=== PATIENT | male | born 2000 | race Caucasian/White ===

== ENCOUNTER 2021-06-25 11:33 | Outpatient (CLI) | payer OTHER, SELFPAY | END 2021-06-25 11:34 | disposition home or self-care (01) | LOC: ANHSURGERY 11:38 | PROVIDERS: PCP Family Medicine; Visit Provider Surgery | DX: Z01.818 Encounter for other preprocedural examination (principal); K40.90 Unilateral inguinal hernia, without obstruction or gangrene, not specified as recurrent | CPT/HCPCS: 36415; 86850; 86900; 86901 ==

== ENCOUNTER → 2021-06-28 00:05 | Outpatient (CLI) | payer OTHER, SELFPAY ==
[2021-06-28 19:57] LABS: SARS-CoV-2 RNA PCR Negative
== END ==
PROVIDERS: PCP Family Medicine; Visit Provider Surgery
DX: Z01.812 Encounter for preprocedural laboratory examination (principal); Z20.822 Contact with and (suspected) exposure to COVID-19
CPT/HCPCS: C9803; U0003; U0005

== ENCOUNTER 2021-07-02 00:37 | Day surgery (SDC) | payer OTHER, SELFPAY ==
[2021-06-20 13:47] VITALS: BMI 27.1
--- NOTE | 2021-06-20 14:01 | PC.NURSE ---
Addendum entered by Amara Garcia RN 06/20/21 14:04: PT INSTRUCTED TO SHOWER WITH MACEYNS MORNING OF SURGERY. Original Note: Report to the Outpatient Waiting Room, entrance under the [place] [facility] located off [facility], at time 7:00 on date 07/02/21. OR Time: 9:00. - You and your visitor will be asked a series of questions to screen for COVID 19 for your protection. - A mask is required within the hospital. - Only one visitor is allowed at this time. Patient visitors will be guided where to wait when not with patient. Preoperative COVID Testing Requirements: No COVID Test needed if: (proof is required; if not received patient will have Rapid Test prior to entry) - Patient has received COVID Vaccine at least 14 days prior to procedure date or - Patient has positive COVID test result within last 90 days of surgery date. COVID Test needed if above criteria is not met If not COVID vaccinated a COVID test must be conducted within 72 hours of surgery and patient is asked to isolate self from time of testing until procedure. You will go to the [facility] for your COVID testing. The [facility] site is located at the corner [address] [facility]. COVID TEST 06/28 AT 9:15 You will only be called if COVID results are positive and your surgeon may reschedule your elective surgery date. Patients may have clear liquids (water, carbonated beverages, clear teas, apple juice) until 3 hours prior to surgery with a maximum of 20 ounces. - No food from midnight until time of surgery - Infants may have breast milk until 4 hours before surgery, formula 6 hours prior to surgery. - Children will be allowed to drink immediately following surgery. If applicable, please bring a bottle or sippy cup to assist with drinking. Juice, water, soda, and popsicles are readily available. For infants on formula, please bring formula the day of surgery. Pacifiers are allowed. Take the following medications with a SIP of water the morning of surgery: WELLBUTRIN Medications to discontinue per physician: N/A Date to take last dose: N/A Please no make-up, nail tajik, hairspray, perfume, deodorant, or body powder the day of surgery. No jewelry (including any body piercings) or valuables the day of surgery, leave them at home. Please take a shower or bath the night before, or the morning of, surgery with an antibacterial soap. Wear comfortable, loose fitting clothing. Children are encouraged to wear pajamas. - Jewelry must be removed prior to entering the operating room. Rings and piercings that are not removed may be cut off. - The hospital will not accept responsibility for valuables. - Please leave all valuables, including medications, at home the day of surgery. If you are going home after surgery, a licensed entry level truck driver must drive you home. - NO public transportation without another adult. - We recommend that an adult stay with you for 24 hours following discharge. - We also recommend that you do not drive, make important decision, drink alcoholic beverages, or take any drugs that were not prescribed by your health care provider for at least 24 hours after your discharge time. For Pediatric surgeries, we recommend two adults accompany the child home (only one inside the building at this time). Follow any additional instructions given to you from your surgeon. Telephone instructions given to PING HARO and asked if any additional questions and then verbalized understanding. Patient advised to call surgeon office or pre surgery nurse liaison [phone] if any additional questions.
[2021-07-02] VITALS (10 sets, daily range): BP systolic 107–131; BP diastolic 59–81; PULSE 58–71; RESP 7–20; TEMP 36.5–36.6; O2SAT 98–100; BMI 27.8
[2021-07-02] MEDS: LACTATED RINGERS 1,000 ML 30 ML IV CONT ×2 (07:35→10:59)
[2021-07-02] MEDS: ACETAMINOPHEN 500 MG TABLET 1000 MG PO (07:46)
[2021-07-02] MEDS: KETOROLAC 15 MG/ML VIAL (*BKC) IV PUSH (07:46)
--- NOTE | 2021-07-02 08:27 | P.PNAN_ITS ---
Anes - Initial Pre Proc Eval Procedure: Operation Date: 07/02/21 09:00 Proposed Procedures p Laparoscopic Right Inguinal Hernia Repair With Mesh, DaVinci Assisted - Kenroy Noe DO Date/Time: 07/02/21 08:27 Surgeon: Kenroy Noe DO Pre Op Diagnosis: Rt Ing Hernia Patient Data Age: 21 Gender: M Height: 1.83 m Weight: 93.15 kg Last Vital Signs Temp 36.5 C 07/02/21 07:10 Pulse 70 07/02/21 07:10 Resp 14 07/02/21 07:10 BP 107/74 07/02/21 07:10 Pulse Ox 100 07/02/21 07:10 Allergies Allergy/AdvReac Type Severity Reaction Status Date / Time No Known Allergies Allergy Verified 07/02/21 07:23 Home Medications Medication Instructions Recorded Confirmed Type bupropion HCl [Wellbutrin XL] 150 mg PO DAILY 06/20/21 07/02/21 History Patient hx anesthesia problems: none Family hx anesthesia problems: none Results Review: All pre-operative results and documents have been reviewed as part of the pre-operative evaluation. [facility], [facility] Past Medical History Medical History ADD (attention deficit disorder) Anxiety Bipolar disorder Scoliosis Social History Social History Smoking status: Current every day smoker Tobacco type: e-cigarettes/vaping Alcohol intake: current Drinks per week: 6 Alcohol use details: ON WEEKENDS Substance use: current Substance use type: marijuana Last use: 06/20/21 Living arrangements: with roommate(s) Spiritual care concerns: No Anes - Eval Final PreProcedure Day of Procedure 07/02/21 08:27 Patient weight: overweight Heart: regular rate and rhythm Lungs: clear to auscultation Airway: Mallampati scale class II Neurological: alert and oriented Last oral intake: >/= 8 hours ASA classification: III Emergent: no Anesthetic plan: proceed Anesthesia type and monitoring: general ETT and standard monitoring Results Review: All pre-operative results and documents have been reviewed as part of the pre-operative evaluation. Informed Consent: The patient's anesthetic plan and its attendant risks and benefits were discussed with the patient/family/POA. Questions were solicited and answers provided to the satisfaction of the patient/family/POA.
[2021-07-02] MEDS: SCOPOLAMINE 1.5 MG PATCH TRANSDERM (08:38)
--- NOTE | 2021-07-02 08:50 | PM.IMHP ---
H&P: HPI History of Present Illness Date/Time: 07/02/21 08:50 Chief Complaint: right inguinal hernia Narrative: This is a 21-year-old man who presents for right inguinal hernia repair. He denies any changes since last seen in office. Review of Systems Review of Systems: All systems reviewed & are unremarkable except as noted in HPI and below Constitutional: Constitutional: Denies chills, Denies fever(s), Denies headache(s) and Denies weight loss Eyes: Eyes: Denies change in vision ENT: Denies dizziness, Denies headache(s), Denies neck mass and Denies throat swelling Cardiovascular: Cardiovascular: Denies chest pain, Denies lightheadedness and Denies dyspnea Respiratory: Respiratory: Denies cough, Denies dyspnea and Denies wheezing Gastrointestinal: Gastrointestinal: Denies abdominal pain, Denies change in bowel habits, Denies nausea and Denies vomiting Genitourinary: Genitourinary: Denies hematuria and Denies dysuria Musculoskeletal: Musculoskeletal: Reports as per HPI Integumentary/Breasts: Skin/Breast: Reports as per HPI Neurologic: Denies dizziness and Denies headache(s) Allergic/Immunologic: Allergic/Immunologic: Denies throat swelling and Denies wheezing PMFSH Past Medical History Medical History ADD (attention deficit disorder) Anxiety Bipolar disorder Scoliosis Social History Social History Smoking status: Current every day smoker Tobacco type: e-cigarettes/vaping Alcohol intake: current Drinks per week: 6 Alcohol use details: ON WEEKENDS Substance use: current Substance use type: marijuana Last use: 06/20/21 Living arrangements: with roommate(s) Spiritual care concerns: No Meds Home Medications and Allergies Home Medications Medication Instructions Recorded Confirmed Type bupropion HCl [Wellbutrin XL] 150 mg PO DAILY 06/20/21 07/02/21 History Allergies Allergy/AdvReac Type Severity Reaction Status Date / Time No Known Allergies Allergy Verified 07/02/21 07:23 Vital Signs Vital Signs - 24 hr 07/02/21 07:10 Temperature 36.5 C Pulse Rate 70 Respiratory Rate 14 Blood Pressure 107/74 Pulse Oximetry 100 Exam Const: General: no acute distress and alert Orientation/consciousness: patient oriented x3 HENMT: Head: normocephalic and atraumatic Ears: hearing grossly normal bilaterally General nose exam: Normal nares present Mouth: Yes Normal oral and palatal mucosa present Eyes: Periorbital: periorbital findings normal Sclera: sclerae normal EOM: EOMs intact bilaterally Neck: Neck: normal visual inspection, no lymphadenopathy and trachea midline Chest: Chest palpation & inspection: normal inspection of the chest Resp: Effort & Inspection: normal respiratory effort Auscultation: clear to auscultation bilaterally Cardio: Jugular venous distension: no JVD Rate: regular rate Rhythm: regular rhythm Heart sounds: S1 normal heart sound present and S2 normal heart sound present Peripheral pulses: Peripheral pulses 2+ throughout GI: Inspection: normal to inspection GI Palp: Yes Soft to palpation, No Tenderness to palpation present (GI), No Guarding due to palpation present (GI) and No Rebound tenderness present Percussion: Yes normal to percussion Auscultation: normal bowel sounds : General: Yes no CVA tenderness Scrotum: inguinal hernia (Right) Back/Spine/Pelvis: Back: no CVA tenderness Neuro: General: patient oriented x3, no focal motor deficits and CN's II-XI intact bilaterally Cognition (Neuro): normal cognition Speech: normal speech Motor exam (neuro): 5/5 motor strength present throughout Extrem: General: capillary refill normal and no clubbing, cyanosis or edema Assessment and Plan Assessment and plan (1) Reducible right inguinal hernia: Code(s): K40.90 - Unilateral inguinal hernia, without obstruction or g
--- NOTE | 2021-07-02 08:52 | WPDHPUPDATE1 ---
History and Physical Update Update Date/Time: 07/02/21 08:52 History and Physical has been reviewed, including an updated exam of the patient. There are NO changes in the patient's condition. Risks, benefits, and alternatives have been discussed and questions answered. Patient agrees to proceed with procedure.
[2021-07-02] MEDS: ceFAZolin 2 GM/D5W 50 ML 2 GM/50 ML BAG IVPB (09:14)
[2021-07-02] MEDS: BUPIVACAINE HCL 0.5% PF 30 ML VIAL INFILTRATE (09:34)
--- NOTE | 2021-07-02 11:06 | W.PM.PROC2 ---
Procedure Note - Detailed Date of Procedure 07/02/21 Pre-op Diagnosis Right inguinal hernia Post-op Diagnosis same (Indirect RIH) Procedure Performed Laparoscopic right inguinal hernia repair with mesh, da Igor assisted Surgeon Kenroy Noe, Anesthesia general and local (0.5% bupivacaine with epinephrine) Indications This is a 21-year-old man who presented with right groin pain. He had an ultrasound which showed evidence of a probable right inguinal hernia. A reducible right inguinal hernia was palpable on exam. Discussions were made with the patient about treatment options and decision was made to proceed with robotic assisted laparoscopic right inguinal hernia repair with mesh. Findings Laparoscopic right inguinal hernia repair was performed. Patient was found to have a small reducible indirect right inguinal hernia. There was no evidence of a left inguinal hernia. A robotic transabdominal preperitoneal approach was utilized for the repair. Once a wide enough preperitoneal pocket was created, a large right Bard 3DMax mid mesh was placed overlying the entire right myopectineal orifice. Description of Procedure Procedure as well as risks, benefits, and alternatives were discussed with the patient. Written consent was obtained and placed in chart prior to procedure. Patient was brought back to surgical suite. He was placed supine on operating table. Time-out was done to confirm patient and procedure. He was then intubated by Anesthesia Department. His abdomen was prepped and draped in sterile fashion using chlorhexidine prep. 0.5% bupivacaine with epinephrine was infiltrated at each location for incision. A 12 millimeter transverse incision was made just superior to the umbilicus using a 15 blade scalpel. Blunt dissection was carried out down to the linea alba. A vertical incision was made at the linea alba using a 15 blade scalpel. The peritoneum was then bluntly entered. A 12 millimeter trocar was inserted and carbon dioxide insufflation was used to create a pneumoperitoneum. A camera was inserted and the abdominal cavity was inspected. The patient was placed in slight Trendelenburg position. An 8 millimeter incision was made on the right lateral abdomen and an 8 millimeter trocar was inserted under direct visualization. Another 8 millimeter incision was made in the left lateral abdomen and an 8 millimeter trocar was inserted under direct visualization. The robotic arms were brought up to the patient's bedside and secured to the ports. The camera and instruments were inserted. I then moved over to the robotic console and took control of the camera and instruments. After careful inspection of the abdominal cavity, I began scoring the peritoneum along the right lower quadrant using scissors with electrocautery. The preperitoneal plane was entered and this was carefully dissected caudally along the inferior epigastric vessels. Careful dissection with scissors with electrocautery and blunt dissection was used to continue this dissection. I dissected far enough laterally to allow for mesh placement, and also dissected medially to identify the pubic arch and Bryant's ligament. The hernia sac was identified and carefully dissected posteriorly. The cord contents were also identified and the peritoneum was carefully dissected far enough posteriorly to allow for mesh placement. Once an adequate pocket was created, I then placed the mesh within the preperitoneal pocket and carefully unfolded it. The mesh was centered on the hernia defect with adequate overlap circumferentially. The inferior edge of the mesh was inspected to ensure that it was far enough away from the peritoneal edge. The mesh appeared in proper position overlying the entire myopectineal orifice. Mesh was then secured in place at Bryant's ligament, the superior medial edge, and superior lateral edge using 3-0 Vicryl simple interrupted sutures. The peritoneum was then closed o
[2021-07-02] MEDS: fentaNYL CITRATE INJ (*CRX) 100 MCG/2 ML VIAL 25 MCG IV PUSH (11:19)
[2021-07-02] MEDS: oxyCODONE HCL (*CRX) 5 MG TAB IR PO (12:59)
== END 2021-07-02 13:48 | disposition home or self-care (01) ==
PROVIDERS: PCP Family Medicine; Visit Provider Surgery
PROC: 8E0Y4CZ Robotic Assisted Procedure of Lower Extremity, Percutaneous Endoscopic Approach (ICD-10-PCS; CPT 49650; principal; 2021-07-02 09:00)
DX: K40.90 Unilateral inguinal hernia, without obstruction or gangrene, not specified as recurrent (principal); F98.8 Other specified behavioral and emotional disorders with onset usually occurring in childhood and adolescence; F41.9 Anxiety disorder, unspecified; F31.9 Bipolar disorder, unspecified; F17.290 Nicotine dependence, other tobacco product, uncomplicated; F12.90 Cannabis use, unspecified, uncomplicated
CPT/HCPCS: 49650; S2900; 36415; 86850; 86900; 86901; A9270; C9803; J0690; J1100; J1885; J2250; J2405; J2704; J2710; J3010; J7120; U0003; U0005

== ENCOUNTER 2021-12-26 10:03 | Outpatient (CLI) | payer MEDICAID, SELFPAY ==
--- NOTE | ~2021-12-26 | US_ITS ---
EXAMINATION: US scrotum doppler DATE: 12/26/2021 11:15 INDICATION: Testicular pain TECHNIQUE: Testicular sonogram utilizing grayscale and Doppler COMPARISON: None. FINDINGS: The right testis measures 5.3 x 3.0 x 2.4 cm. The left testis measures 5.9 x 3.4 x 2.3 cm. Symmetric normal grayscale appearance to both testes. There is normal vascular flow to both testes. The right e pididymis is normal with normal vascular flow. The left epididymis is normal with normal vascular salma w. There is no varicocele or hydrocele. IMPRESSION: 1. Normal scrotal ultrasound. Reviewed, dictated and finalized at location B.
--- NOTE | ~2021-12-26 | US_ITS ---
US pelvic limited 12/26/2021 11:14 Indication: Testicular pain. History of prior left hernia repair in July 2021. Procedure: High-resolution Limited ultrasound of the pelvis including the inguinal regions Comparison: No prior studies for comparison. Findings: No evidence for hernia. No abnormal masses are identified. Bladder is unremarkable. Prostat e gland measures 4 x 3.8 x 2.7 cm. Impression: 1: Unremarkable pelvic ultrasound. Reviewed, dictated and finalized at location A. Impression: 1: Unremarkable pelvic ultrasound.
== END 2021-12-26 10:04 | disposition home or self-care (01) ==
LOC: ANHIMG 10:06
PROVIDERS: PCP Family Medicine; Visit Provider Family Medicine
DX: N50.819 Testicular pain, unspecified (principal); N50.89 Other specified disorders of the male genital organs; R10.2 Pelvic and perineal pain; Z98.890 Other specified postprocedural states; Z87.19 Personal history of other diseases of the digestive system
CPT/HCPCS: 76857; 76870; 93976

== ENCOUNTER 2022-07-03 15:40 | Emergency (ER) | payer OTHER, SELFPAY ==
[2022-07-03 15:45] VITALS: BP 114/68; PULSE 75; RESP 18; TEMP 37.5; O2SAT 100
--- NOTE | 2022-07-03 18:27 | ED.GENADULT ---
HPI - General Adult General Chief complaint: Nausea/Vomiting/Diarrhea Stated complaint: fatigue nausea dizzy Time Seen by Provider: 07/03/22 18:28 Source: patient, RN notes reviewed and old records reviewed Mode of arrival: ambulatory Limitations: no limitations History of Present Illness HPI narrative: 22 year old male who presents to [facility] care with complaints of feeling some headache, nausea without vomiting, fatigue,sore throat worse in morning for the past week. Patient reports that he has taken some Tylenol for his symptoms. Patient reports that he has not had COVID vaccinations or any flu shot. Patient denies any known fevers, chills or sweats or any body aches. MD complaint: headache, fatigue, sore throat nausea Onset (ago): week(s) (1) Treatments prior to arrival: other (Tylenol) Related Data Allergies Allergy/AdvReac Type Severity Reaction Status Date / Time No Known Allergies Allergy Verified 12/31/21 16:01 Review of Systems Review of Systems: CONSTITUTIONAL: Denies malaise, chills, sweats, or fever. EYES: Denies visual changes, redness, or discharge. ENT: Reports rhinorrhea, congestion, sinus pain, no otalgia positive for some sore throat. CARDIOVASCULAR: Denies chest pain, palpitations, or edema. RESPIRATORY: No cough.? Denies dyspnea. GASTROINTESTINAL: Denies abdominal pain, positive for nausea, no vomiting, diarrhea SKIN: Denies rash or itching. MUSCULOSKELETAL: Denies myalgia. NEUROLOGIC: Reports headache. All systems reviewed & are unremarkable except as noted in HPI and below PMFSH Past Medical History Medical History ADD (attention deficit disorder) Anxiety Bipolar disorder Scoliosis Surgical History Surgical History H/O inguinal hernia repair RIGHT INGUINAL HERNIA REPAIR DAVINCI ASSISTED 07/02/21 Social History Social History Smoking status: Current every day smoker Tobacco type: e-cigarettes/vaping Alcohol intake: current Drinks per week: 6 Alcohol use details: ON WEEKENDS Substance use: current Substance use type: marijuana Last use: 06/20/21 Spiritual care concerns: No Comments At time of signature, agree with nursing past medical, surgical, social and family history. There is no relevant family history pertinent to the presenting complaint Exam Narrative: GENERAL: Well-appearing, well-nourished, and in no acute distress. HEAD: Normocephalic EYES: PERRLA, conjunctivae clear ENT: Nares clear, turbinates edematous and erythematous, clear discharge. Mucous membranes moist. TM pearly vasquez with dull light reflex bilaterally; no tragal tenderness. Oropharynx erythematous without lesions. Tonsils not enlarged and without exudate, no drooling, no hoarseness, no trismus, uvula midline. NECK: Supple. No lymphadenopathy CHEST: Clear to auscultation, breath sounds equal. No wheezing, rhonchi, rales, or stridor. No respiratory distress, speaks in full sentences.no cough noted, SAO2 100% on room air HEART: Regular rate and rhythm. No murmur heard. SKIN: Warm, dry, no rash. NEURO: Alert and oriented x3. PSYCH: Normal mood and affect Course Course Emergency Course: Patient is aware of diagnosis, understands and agrees to treatment plan.? Anticipatory guidance given.? Patient agrees to follow-up as directed and is aware of reasons to seek care at the emergency department. Portions of this record may have been created with voice recognition software Level of Care: Express Care Visit Vital Signs Vital signs: Vital Signs Temperature 37.5 C 07/03/22 15:45 Pulse Rate 75 07/03/22 15:45 Respiratory Rate 18 07/03/22 15:45 Blood Pressure 114/68 07/03/22 15:45 Pulse Oximetry 100 07/03/22 15:45 Oxygen Delivery Room Air 07/03/22 15:45 Temperature 37.5 C 07/03/22
== END 2022-07-03 18:42 | disposition home or self-care (01) ==
PROVIDERS: Emergency Provider Registered Nurse; PCP Family Medicine
DX: J06.9 Acute upper respiratory infection, unspecified (principal); F17.209 Nicotine dependence, unspecified, with unspecified nicotine-induced disorders
CPT/HCPCS: 99213; G0463

== ENCOUNTER 2023-09-22 14:28 | Outpatient (CLI) | payer OTHER, SELFPAY ==
--- NOTE | ~2023-09-22 | XR_ITS ---
EXAMINATION: XR lumbar spine 2-3V DATE: 09/22/2023 14:50 INDICATION: Dorsalgia, unspecified. TECHNIQUE: 3 views of lumbar spine were obtained. COMPARISON: None. FINDINGS: There is 8 degrees dextrocurvature of lumbar spine. Vertebral body heights and intervertebr al disc heights are normal. The facet joints are unremarkable. IMPRESSION: 1. No etiology for the patient's symptoms. Reviewed, dictated and finalized at location E. ET MAKER
--- NOTE | ~2023-09-22 | XR_ITS ---
EXAMINATION: XR thoracic spine 3V DATE: 09/22/2023 14:50 INDICATION: Dorsalgia, unspecified. TECHNIQUE: 3 views of thoracic spine were obtained. COMPARISON: None. FINDINGS: There is 6 degrees dextrocurvature of lumbar spine and 10 degrees levoscoliosis of thoracol umbar spine. There is kyphosis of thoracic spine. There is mild chronic anterior wedging of multiple midthoracic vertebral bodies associated with Schmorl's nodes. There is mildly decreased disc height a t multiple levels in mid thoracic spine. There are endplate osteophytes at several levels in mid thor acic spine. IMPRESSION: 1. Scheuermann disease. 2. Mild thoracic spondylosis. 3. Thoracolumbar levoscoliosis. Reviewed, dictated and finalized at location E. S TENDER
--- NOTE | ~2023-09-22 | XR_ITS ---
EXAMINATION: XR_CERV2-3V_CR DATE: 09/22/2023 14:50 INDICATION: Dorsalgia, unspecified. TECHNIQUE: 3 views of cervical spine were obtained. COMPARISON: None. FINDINGS: Bone alignment is normal. Vertebral body heights and intervertebral disc heights are normal . At C7-T1, there is severe facet joint osteoarthritis. No central canal stenosis or prevertebral sof t tissue swelling. IMPRESSION: 1. Severe facet joint osteoarthritis at C7-T1. Reviewed, dictated and finalized at location E. N BARREL FILLER
== END 2023-09-22 14:29 | disposition home or self-care (01) ==
LOC: ANHBWCIMG 14:29
PROVIDERS: PCP Nurse Practitioner Adult Health; Visit Provider Nurse Practitioner Adult Health
DX: M43.04 Spondylolysis, thoracic region (principal); M41.85 Other forms of scoliosis, thoracolumbar region; M47.893 Other spondylosis, cervicothoracic region; M42.00 Juvenile osteochondrosis of spine, site unspecified
CPT/HCPCS: 72040; 72072; 72100